=== PATIENT | female | born 1965 | race Caucasian/White ===

== ENCOUNTER 2024-08-13 09:18 | Emergency (ER) | payer BC, SELFPAY ==
[2024-08-13 09:24] VITALS: BP 113/86
[2024-08-13 09:34] VITALS: BMI 30.5
[2024-08-13 09:37] VITALS: BP 137/85
[2024-08-13] MEDS: ADENOCARD 6 MG IV (09:49)
--- NOTE | 2024-08-13 09:49 | ED.GENMED ---
History of Present Illness
<Aristeo Hammond PA-C - Last Filed: 08/13/24 11:53>
General
Chief Complaint: Heart Rate Problem
Source: patient and physician
Time Seen by Provider: 08/13/24 09:37
History of Present Illness
History of Present Illness:
59-year-old female with no significant past medical history at her primary notifying them that she woke up experiencing palpitations with an elevated heart rate. Patient started to feel as if she had an presenting to the emergency department at
request of primary care provider after she had a mild cold and took a dose of NyQuil last night and awoke around 5:15 AM this morning experiencing the palpitations she endorses some mild chest discomfort associated with the elevated heart rate but
otherwise denies any shortness of breath, exertional dyspnea, orthopnea, cough, fevers or any other concerns. Denies any history of similar. No EtOH use.
Past History
<Aristeo Hammond PA-C - Last Filed: 08/13/24 11:53>
Past History
ED Past Medical History: None
ED Past Surgical History: Gynecological
Social History
Tobacco: Non-smoker
Alcohol: None
Drug: None
Personal:
Living: with family
Review of Systems
<Aristeo Hammond PA-C - Last Filed: 08/13/24 11:53>
Review of Systems
All Other Systems: ROS reviewed and negative except as documented in HPI and ROS
Phy Exam
<Aristeo Hammond PA-C - Last Filed: 08/13/24 11:53>
Physical Exam
Physical Exam:
GENERAL: Alert , in no apparent distress
EYE: conjunctiva clear
NECK: Supple, no significant adenopathy.
ENT: o/p clr, mmm.
CARDIAC: Tachycardic rate and rhythrm, rate up to as high as 181bpm
LUNGS: Clear breath sounds bilaterally, no acute respiratory distress, no wheezes/rales/rhonchi
NEUROLOGICAL: Alert and oriented
SKIN: Warm and dry, skin intact.
MUSCULOSKELETAL: well perfused.
PSYCH: Normal and appropriate interaction.
Scores
<Aristeo Hammond PA-C - Last Filed: 08/13/24 11:53>
Heart Failure Risk
Heart Failure Risk Score: Not Applicable
Heart Score for Chest Pain Patients
STEMI patient?: Not applicable
Withdrawal Assessment of Alcohol
Withdrawal Assessment Completed?: Not applicable
Course
<Aristeo Hammond PA-C - Last Filed: 08/13/24 11:53>
Orders/Labs/Results
Orders:
Orders
08/13/24 09:19
Electrocardiogram (*1) Urgent
Reason for Study: Chest Pain
EKG- Treatment ONCE
08/13/24 09:43
Adenosine [Adenocard] 18 mg .ROUTE .[facility]-MED ONE
08/13/24 09:47
EKG [Electrocardiogram (*1)] Urgent
Reason for Study: Tachycardia
EKG- Treatment ONCE
08/13/24 09:48
Adenosine [Adenocard] 6 mg IV NOW STA
08/13/24 09:50
Complete Blood Count/With Diff Urgent
TSH Urgent
Comment: ADD ON
08/13/24 09:51
Basic Metabolic Panel Urgent
08/13/24 10:59
Add On- LAB Stat
Tests Added?: TSH
Abnormal Lab Results
08/13/24 08/13/24
09:50 09:51
Absolute Neuts (auto) 6.6 H 10^3/uL
(1.4-6.5)
Absolute Monos (auto) 1.7 H 10^3/uL
(0.1-0.6)
Lymphocytes % 18.9 L %
(20.5-51.1)
Monocytes % 16.0 H %
(1.7-9.3)
Glucose 141 H mg/dl
(70-99)
08/13/24 09:50
08/13/24 09:51
Vital Signs
Initial and Last Documented VS:
Initial Vital Signs
Temp Pulse Resp BP Pulse Ox
98.7 F 172 18 113/86 99
08/13/24 09:24 24 09:24 08/13/24 09:24 08/13/24 09:24 08/13/24 09:24
Last Documented Vital Signs
Temp Pulse Resp BP Pulse Ox
98.7 F 85 15 137/85 99
08/13/24 09:24 08/13/24 10:00 08/13/24 09:37 08/13/24 09:37 08/13/24 11:00
<Darwin Morocho, DO - Last Filed: 08/13/24 10:13>
Orders/Labs/Results
Orders:
Orders
08/13/24 09:19
Electrocardiogram (*1) Urgent
Reason for Study: Chest Pain
EKG- Treatment ONCE
08/13/24 09:43
Adenosine [Adenocard] 18 mg .ROUTE .[facility]-MED ONE
08/13/24 09:47
EKG [Electrocardiogram (*1)] Urgent
Reason for Study: Tachycardia
EKG- Treatment ONCE
08/13/24 09:48
Adenosine [Adenocard] 6 mg IV NOW STA
08/13/24 09:50
Complete Blood Count/With Diff Urgent
TSH Urgent
Comment: ADD ON
08/13/24 09:51
Basic Metabolic Panel Urgent
08/13/24 10:59
Add On- LAB Stat
Tests Added?: TSH
Abnormal Lab Results
24 08/13/24
09:50 09:51
Absolute Neuts (auto) 6.6 H 10^3/uL
(1.4-6.5)
Absolute Monos (auto) 1.7 H 10^3/uL
(0.1-0.6)
Lymphocytes % 18.9 L %
(20.5-51.1)
Monocytes % 16.0 H %
(1.7-9.3)
Glucose 141 H mg/dl
(70-99)
08/13/24 09:50
08/13/24 09:51
Vital Signs
Initial and Last Documented VS:
Initial Vital Signs
Temp Pulse Resp BP Pulse Ox
98.7 F 172 18 113/86 99
08/13/24 09:24 08/13/24 09:24 08/13/24 09:24 08/13/24 09:24 08/13/24 09:24
Last Documented Vital Signs
Temp Pulse Resp BP Pulse Ox
98.7 F 85 15 137/85 99
08/13/24 09:24 08/13/24 10:00 08/13/24 09:37 08/13/24 09:37 08/13/24 11:00
<Aristeo Hammond PA-C - Last Filed: 08/13/24 11:53>
MDM/Problems Addressed
Differential Diagnosis Includes:
SVT, afib, thyroid disorder, electrolyte abnormality, medication side effects
MDM/Problems Addressed:
59-year-old female presenting to the emergency department for evaluation of elevated heart rate since 5:15 AM this morning. Started with mild cold-like symptoms yesterday and took a dose of NyQuil last night around 10 PM. patient had EKG done in
triage which showed supraventricular tachycardia at a rate of about 175 bpm. We attempted vagal maneuvers which were unsuccessful. Patient converted back to a normal sinus rhythm following 6 mg of adenosine. Symptoms improved. Continuing to
monitor the patient with anticipated discharge home and outpatient follow-up as needed.
<Aristeo Hammond PA-C - Last Filed: 08/13/24 11:53>
*Pulse Oximetry
Patient hypoxic: no
*EKG
Interpreted by ED Provider?: Yes
Heart Rate: 172
Rate: tachycardiac
Rhythm: SVT
*Product Marketing Specialist Interpretation
Rate: tachycardiac
Rhythm: SVT
*Critical Care Note
Total Time (30-74mins, 75-104mins- exclusive of procedures): 30
comment:
Critical care statement: A total of 30 minutes of critical care time was provided for this patient. This includes management of unstable vital signs, evaluation of the patient at bedside, reviewing the patient's pertinent medical records, discussion
with consultants, review of old EKGs and review of pertinent medical records. This time with separate from time utilized to perform the aforementioned documented procedures
<Aristeo Hammond PA-C - Last Filed: 08/13/24 11:53>
Comment
Comment:
Repeat EKG following adenosine shows NSR at 96bpm with no ischemic changes, labs including TSH sent
Patient Management
Discussion with other providers: PCP
Escalation/DeEscalation of care consider admission/obs:
On reevaluation patient continues to be in a normal sinus rhythm at a rate around 75 to 80 bpm. She remains asymptomatic. Labs reassuring. I notified patient's primary care provider who sent her to the ER today about patient's work and treatment.
Patient will follow-up with primary care provider as needed and is aware of return precautions to the ER.
ED Attending Note
<Aristeo Hammond PA-C - Last Filed: 08/13/24 11:53>
-
Portions of this chart may have been created with voice recognition software.� Occasional wrong word or��sound alike� substitutions may have occurred due to the inherent limitations of voice recognition software.
<DO Verna Strong Last Filed: 08/13/24 10:13>
ED Attending Note
Patient seen and examined by attending physician: Yes
I performed the substantive portion of visit, reviewed & personally made and approve the management plan that is documented in note by myself or [place].: Yes
ED Attending Note:
I have seen and evaluated the patient with a [id number] encounter. I have spoken to the advance practicer provider and involved in the medical history, the physical exam, medical decision making.
Evaluation and management service: agree unless noted differently below.
Results interpretation: agree unless noted differently below.
Focused HPI: 59-year-old female presenting with palpitations. Patient brought back immediately with concerns for SVT. Patient has not been feeling well and she [id number] cough and congestion medicine.
Physical exam: Anxious, tachycardic
Medical Decision Making: SVT broke with adenosine and all symptoms resolving.
Discharge Plan
Departure
Patient Disposition: Home (Routine Discharge)
Date of Disposition: 08/13/24
Time of Disposition: 11:00
Patient with high blood pressure during this ER visit?: No
Discharge Problem:
Supraventricular tachycardia
Instructions: Supraventricular tachycardia (SVT)
Referrals:
Jazz Cruz CRNP [Family Provider] -
Interventions
Interventions:
*Risk Screen - Suicide Last Done: 08/13/24 09:24
*General Assessment Last Done: 08/13/24 09:24
*Neglect/Abuse Screening Last Done: 08/13/24 09:24
*ED COVID-19 Vaccine History Last Done: 08/13/24 09:24
*Nursing Disposition Last Done: 08/13/24 11:20
ED- Cardiac Assessment Last Done: 08/13/24 09:37
ED- Pulmonary Assessment Last Done: 08/13/24 11:00
Discharge Date and Time
Discharge Date/Time: 08/13/24 11:20
Print Language: BENGALI
[2024-08-13 10:04] LABS: % Basophils 0.3 % (0-2); % Immature Granulocytes 0.2 % (0-0.5); % Lymphocytes 18.9 % (20.5-51.1); % Neutrophils 62.6 % (42.2-75.2); Absolute Eosinophils 0.2 10^3/uL (0-0.7); Absolute Monocytes 1.7 10^3/uL (0.1-0.6); Absolute Neutrophils 6.6 10^3/uL (1.4-6.5); Hemoglobin 14.9 g/dL (12.0-16.0); Mean Corp Hgb Conc. 33.9 g/dL (33.0-37.0); Mean Corpuscular Volume 88.5 fL (81.0-99.0); Mean Platelet Volume 8.7 fL (7.4-10.4); Nucleated Red Blood Cells % 0 %; Platelet Count 273 10^3/uL (130-400); Red Blood Cell Count 4.97 10^6/uL (4.20-5.40); Red Cell Dist. Width 12.3 % (11.5-14.5); White Blood Cell Count 10.5 10^3/uL (4.8-10.8)
[2024-08-13 10:10] LABS: Blood Urea Nitrogen 17 mg/dl (7-17); Calcium 9.5 mg/dl (8.4-10.2); Carbon Dioxide 24 mmol/L (22-30); Chloride 107 mmol/L (98-107); Estimated Creatinine Clearance 77 ml/min; Glucose 141 mg/dl (70-99); Potassium 3.9 mmol/L (3.5-5.1); Sodium 141 mmol/L (135-145); eGFR > 60.00
[2024-08-13 14:10] LABS: TSH 1.75 uIU/ml (0.47-4.68)
== END 2024-08-13 11:20 | disposition home or self-care (01) ==
LOC: EMR 09:18
PROVIDERS: Physician Assistant Medical; EMERGENCY PHYSICIAN Student in an Organized Health Care Education/Training Program; FAMILY PHYSICIAN Nurse Practitioner Family
DX: I47.10 Supraventricular tachycardia, unspecified (principal)
CPT/HCPCS: 99283; 80048; 84443; 85025; 93005; J0153

== ENCOUNTER → 2024-08-18 13:13 | Outpatient (REF) | payer BC, SELFPAY | LOC: WDC 13:13 | PROVIDERS: ATTENDING PHYSICIAN Obstetrics & Gynecology; FAMILY PHYSICIAN Nurse Practitioner Family | DX: Z12.31 Encounter for screening mammogram for malignant neoplasm of breast (principal) | CPT/HCPCS: 77063; 77067 ==

== ENCOUNTER 2024-09-14 09:59 | Emergency (ER) | payer BC, SELFPAY ==
[2024-09-14 10:17] VITALS: BP 165/75
[2024-09-14 10:24] VITALS: BP 129/87
[2024-09-14] MEDS: ADENOCARD 6 MG IV (10:30)
[2024-09-14 10:33] VITALS: BP 153/93
--- NOTE | 2024-09-14 10:39 | ED.GENMED ---
History of Present Illness
<Aristeo Hammond PA-C - Last Filed: 09/14/24 13:09>
General
Chief Complaint: Heart Rate Problem
Source: patient
Time Seen by Provider: 09/14/24 10:23
History of Present Illness
History of Present Illness:
59-year-old female with no significant past medical history presents back to the emergency department for evaluation after she felt a sudden onset of palpitations around 9:30 AM this morning, sitting at her desk at the time, feels exactly similar to
when she had an episode of ventricular tachycardia a little over 1 month ago. Patient required emergency department care here and received adenosine with resolution of her SVT. Patient states she tried vagal maneuvers with no relief. She notes
that she did remove caffeine from her diet. She was going to call cardiology today to schedule her follow-up visit. Denies any fevers or recent illnesses. Presently only notes the palpitations/elevated heart rate as her only symptom.
Past History
<Aristeo Hammond PA-C - Last Filed: 09/14/24 13:09>
Past History
ED Past Medical History: None
ED Past Surgical History: Gynecological
Social History
Tobacco: Non-smoker
Alcohol: None
Drug: None
Personal:
Living: with family
Review of Systems
<Aristeo Hammond PA-C - Last Filed: 09/14/24 13:09>
Review of Systems
All Other Systems: ROS reviewed and negative except as documented in HPI and ROS
Phy Exam
<Aristeo Hammond PA-C - Last Filed: 09/14/24 13:09>
Physical Exam
Physical Exam:
GENERAL: Alert , in no apparent distress
EYE: conjunctiva clear
NECK: Supple, no significant adenopathy.
ENT: o/p clr, mmm.
CARDIAC: Significantly tachycardic rate, normal rhythm
LUNGS: Clear breath sounds bilaterally, no acute respiratory distress, no wheezes/rales/rhonchi
NEUROLOGICAL: Alert and oriented
SKIN: Warm and dry, skin intact.
MUSCULOSKELETAL: well perfused.
PSYCH: Normal and appropriate interaction.
Scores
<Aristeo Hammond PA-C - Last Filed: 09/14/24 13:09>
Heart Failure Risk
Heart Failure Risk Score: Not Applicable
Heart Score for Chest Pain Patients
STEMI patient?: Not applicable
Withdrawal Assessment of Alcohol
Withdrawal Assessment Completed?: Not applicable
Course
<Aristeo Hammond PA-C - Last Filed: 09/14/24 13:09>
Orders/Labs/Results
Orders:
Orders
09/14/24 10:00
ECG [Electrocardiogram (*1)] Urgent
Reason for Study: Tachycardia
Other Reason for Exam: h/o SVT
EKG- Treatment ONCE
09/14/24 10:26
Adenosine [Adenocard] 18 mg .ROUTE .STK-MED ONE
09/14/24 10:30
Adenosine [Adenocard] 6 mg IV NOW STA
09/14/24 10:32
EKG- Treatment ONCE
Vital Signs
Initial and Last Documented VS:
Initial Vital Signs
Temp Pulse Resp BP Pulse Ox
97.8 F 180 18 165/75 99
09/14/24 10:17 09/14/24 10:17 09/14/24 10:17 09/14/24 10:17 09/14/24 10:17
Last Documented Vital Signs
Temp Pulse Resp BP Pulse Ox
97.8 F 91 14 153/93 100
09/14/24 10:17 09/14/24 10:45 09/14/24 10:45 09/14/24 10:33 09/14/24 11:04
<Toni Fuentes DO - Last Filed: 09/16/24 13:16>
Orders/Labs/Results
Orders:
Orders
09/14/24 10:00
ECG [Electrocardiogram (*1)] Urgent
Reason for Study: Tachycardia
Other Reason for Exam: h/o SVT
EKG- Treatment ONCE
09/14/24 10:26
Adenosine [Adenocard] 18 mg .ROUTE .STK-MED ONE
09/14/24 10:30
Adenosine [Adenocard] 6 mg IV NOW STA
09/14/24 10:32
EKG- Treatment ONCE
Vital Signs
Initial and Last Documented VS:
Initial Vital Signs
Temp Pulse Resp BP Pulse Ox
97.8 F 180 18 165/75 99
09/14/24 10:17 09/14/24 10:17 09/14/24 10:17 09/14/24 10:17 09/14/24 10:17
Last Documented Vital Signs
Temp Pulse Resp BP Pulse Ox
97.8 F 91 14 153/93 100
09/14/24 10:17 09/14/24 10:45 09/14/24 10:45 09/14/24 10:33 09/14/24 11:04
<Aristeo Hammond PA-C - Last Filed: 09/14/24 13:09>
MDM/Problems Addressed
Differential Diagnosis Includes:
Supraventricular tachycardia, atrial fibrillation, atrial flutter, valvular dysfunction
MDM/Problems Addressed:
59-year-old female presenting to the emergency department for evaluation of palpitations that began approximately 1 hour prior to arrival. Patient attempted vagal maneuvers at home with no relief. EKG done in triage here shows supraventricular
tachycardia at a rate around the 180 bpm. Records reviewed which showed patient did not have improvement with vagal maneuvers last time and required 6 mg adenosine IV. Given patient attempted vagal maneuvers we went directly to adenosine.
Following the 6 mg of adenosine patient back into a normal sinus rhythm that is rate controlled. Given the second visit within a month will notify cardiology to help expedite outpatient follow-up.
Chronic conditions affecting care: Arrhythmia
Acute Exacerbation and/or Progression of Chronic Illness: Arrhythmia
<Aristeo Hammond PA-C - Last Filed: 09/14/24 13:09>
*Pulse Oximetry
Patient hypoxic: no
*EKG
Heart Rate: 180
Rate: tachycardiac
Rhythm: SVT
[place]: normal axis
Ischemia: no ischemia
*Elementary Reading Tutor Interpretation
Rate: tachycardiac
Rhythm: SVT
*Critical Care Note
Total Time (30-74mins, 75-104mins- exclusive of procedures): 30
comment:
Critical care statement: A total of 30 minutes of critical care time was provided for this patient. This includes management of unstable vital signs, evaluation of the patient at bedside, reviewing the patient's pertinent medical records, discussion
with consultants, review of old EKGs and review of pertinent medical records. This time with separate from time utilized to perform the aforementioned documented procedures
Data Reviewed
Review of Other/Old Records Reveals: Labs and Records
<Aristeo Hammond PA-C - Last Filed: 09/14/24 13:09>
Patient Management
Discussion with other providers: Television Anchor
Escalation/DeEscalation of care consider admission/obs:
Cardiology team notified and will help expedite outpatient follow-up. Will initiate patient on 25 mg Toprol-XL daily in the meantime. Remained stable in the ER. Stable for discharge home.
Prior to discharge patient received call from cardiology office and has appointment tomorrow afternoon in office
ED Attending Note
<Aristeo Hammond PA-C - Last Filed: 09/14/24 13:09>
-
Portions of this chart may have been created with voice recognition software.� Occasional wrong word or��sound alike� substitutions may have occurred due to the inherent limitations of voice recognition software.
<Toni Fuentes, DO - Last Filed: 09/16/24 13:16>
ED Attending Note
I performed the substantive portion of visit, reviewed & personally made and approve the management plan that is documented in note by myself or [place].: Yes
Discharge Plan
Departure
Patient Disposition: Home (Routine Discharge)
Date of Disposition: 09/14/24
Time of Disposition: 11:13
Patient with high blood pressure during this ER visit?: Yes
Discharge Problem:
Supraventricular tachycardia
Instructions: Supraventricular tachycardia (SVT), Chest Pain DCA Follow Up
Prescriptions:
New
metoprolol succinate [Toprol XL] 25 mg tablet extended release 24 hr
25 mg PO DAILY Qty: 30 0RF
Interventions
Interventions:
*Risk Screen - Suicide Last Done: 09/14/24 10:17
*General Assessment Last Done: 09/14/24 10:27
*Neglect/Abuse Screening Last Done: 09/14/24 10:17
ED- Fall Risk Assessment Last Done: 09/14/24 10:27
*ED COVID-19 Vaccine History Last Done: 09/14/24 10:27
*Nursing Disposition Last Done: 09/14/24 11:20
ED- Cardiac Assessment Last Done: 09/14/24 10:27
ED- Pulmonary Assessment Last Done: 09/14/24 10:27
Discharge Date and Time
Discharge Date/Time: 09/14/24 11:20
Print Language: MONGOLIAN
== END 2024-09-14 11:20 | disposition home or self-care (01) ==
LOC: EMR 09:59
PROVIDERS: EMERGENCY PHYSICIAN Emergency Medicine; FAMILY PHYSICIAN Nurse Practitioner Family
DX: I47.10 Supraventricular tachycardia, unspecified (principal); R03.0 Elevated blood-pressure reading, without diagnosis of hypertension
CPT/HCPCS: 99291; 96374; 93005; J0153

== ENCOUNTER → 2024-10-14 09:04 | Outpatient (REF) | payer BC, SELFPAY | LOC: RCS 09:04 | PROVIDERS: ATTENDING PHYSICIAN Internal Medicine Cardiovascular Disease; FAMILY PHYSICIAN Nurse Practitioner Family | DX: R00.2 Palpitations (principal) | CPT/HCPCS: 93306 ==

== ENCOUNTER 2024-10-25 14:21 | Emergency (ER) | payer BC, SELFPAY ==
[2024-10-25 14:33] VITALS: BP 121/84
[2024-10-25 14:39] VITALS: BP 121/100
[2024-10-25 14:43] VITALS: BP 140/86
[2024-10-25] MEDS: ADENOCARD 6 MG IV (14:43)
--- NOTE | 2024-10-25 14:48 | ED.GENMED ---
History of Present Illness
General
Chief Complaint: Heart Rate Problem
Source: patient
Exam Limitations: none
Time Seen by Provider: 10/25/24 14:34
History of Present Illness
History of Present Illness:
59-year-old female SVT. History of recurrent SVT. Started this morning. Feels lightheaded and weak with it. No chest pain shortness of breath or syncope. Has been treated with adenosine x 2 in the past. Scheduled for ablation this Saturday.
Stopped her metoprolol yesterday. This was for the procedure. She did take 2 doses today in hopes of resolving the SVT
Past History
Past History
ED Past Medical History: Other (SVT)
ED Past Surgical History: Gynecological
Social History
Tobacco: Non-smoker
Alcohol: None
Drug: None
Personal:
Living: with family
Review of Systems
Review of Systems
All Other Systems: Not applicable
Constitutional: Denies fever
Cardiac: Denies chest pain or syncope
Phy Exam
Physical Exam
Physical Exam:
GENERAL: Alert and oriented in no apparent distress
EYE: Orbits normal.
CARDIAC: Tachycardic and regular no murmur
LUNGS: Clear breath sounds,normal
ABDOMEN: Soft, without focal tenderness or distention
NEUROLOGICAL: Alert and oriented , grossly non-focal
SKIN: Warm and dry, no rash or lesion, no discoloration, skin intact.
MUSCULOSKELETAL: No edema,no deformity.Good color
PSYCH: Normal and appropriate interaction.
Course
Orders/Labs/Results
Orders:
Orders
10/25/24 14:22
EKG [Electrocardiogram (*1)] Urgent
Reason for Study: Chest Pain
EKG- Treatment ONCE
10/25/24 14:36
Adenosine [Adenocard] 18 mg .ROUTE .[facility]-MED ONE
10/25/24 14:43
Adenosine [Adenocard] 6 mg IV NOW STA
10/25/24 14:48
Electrocardiogram (*1) Stat
Reason for Study: Other
Other Reason for Exam: chest pain
Cardiac Monitoring- Treatment ONCE
EKG- Treatment ONCE
IV Insert/Care/Rem.- Treatment PRN
10/25/24 14:50
Basic Metabolic Panel Urgent
Complete Blood Count/With Diff Urgent
Abnormal Lab Results
10/25/24
14:50
WBC 12.5 H 10^3/uL
(4.8-10.8)
Plt Count 404 H 10^3/uL
(130-400)
Absolute Neuts (auto) 8.2 H 10^3/uL
(1.4-6.5)
Absolute Monos (auto) 1.2 H 10^3/uL
(0.1-0.6)
Monocytes % 9.7 H %
(1.7-9.3)
Glucose 134 H mg/dl
(70-99)
10/25/24 14:50
10/25/24 14:50
Vital Signs
Initial and Last Documented VS:
Initial Vital Signs
Pulse Resp
173 19
10/25/24 14:31 10/25/24 14:31
Last Documented Vital Signs
Temp Pulse Resp BP Pulse Ox
98.8 F 74 13 124/61 96
10/25/24 14:33 10/25/24 16:00 10/25/24 16:00 10/25/24 16:00 10/25/24 16:00
*Pulse Oximetry
Patient hypoxic: no
*EKG
Interpreted by ED Provider?: Yes
Interpretation: abnormal
Comparison EKG: changes noted
Heart Rate: 166
Rate: tachycardiac
Rhythm: sinus and SVT
[place]: normal axis
Interval: normal interval
QRS Pattern: normal QRS
Ischemia: non-specific ST changes
*Machine Wiper Interpretation
Rate: tachycardiac
Interpretation: abnormal
Heart Rate: 162
Rhythm: SVT
*Critical Care Note
Total Time (30-74mins, 75-104mins- exclusive of procedures): 10
Data Reviewed
Review of Other/Old Records Reveals: Labs and Records
Update Note
Update Note:
Patient converted with 6 mg of adenosine. Normal sinus rhythm. Cardiology contacted. Will observe for an hour or so.
1615.... Patient stable and nontoxic. No arrhythmias. Discharged to follow-up
ED Attending Note
-
Portions of this chart may have been created with voice recognition software.� Occasional wrong word or��sound alike� substitutions may have occurred due to the inherent limitations of voice recognition software.
Discharge Plan
Departure
Patient Disposition: Home (Routine Discharge)
Date of Disposition: 10/25/24
Time of Disposition: 16:21
Patient with high blood pressure during this ER visit?: Yes
Discharge Problem:
Paroxysmal SVT
Instructions: Supraventricular tachycardia (SVT), BLOOD PRESSURE
Prescriptions:
No Action
metoprolol succinate [Toprol XL] 25 mg tablet extended release 24 hr
25 mg PO DAILY Qty: 30 0RF
Cholest Off Plus 450 mg Capsule
800 mg PO DAILY
Probiotic 100 billion cell Capsule
1 cap PO DAILY
turmeric root extract 500 mg Tablet
500 mg PO DAILY
Referrals:
Jazz Cruz CRNP [Family Provider] -
Activity Restrictions/Additional Instructions:
Follow-up per cardiology
Interventions
Interventions:
*Risk Screen - Suicide Last Done: 10/25/24 14:27
*General Assessment Last Done: 10/25/24 14:27
*Neglect/Abuse Screening Last Done: 10/25/24 14:49
ED- Fall Risk Assessment Last Done: 10/25/24 14:40
*ED COVID-19 Vaccine History Last Done: 10/25/24 14:44
*Nursing Disposition Last Done: 10/25/24 16:31
ED- Cardiac Assessment Last Done: 10/25/24 14:40
ED- Pulmonary Assessment Last Done: 10/25/24 14:40
Discharge Date and Time
Discharge Date/Time: 10/25/24 16:32
Print Language: JAPANESE
[2024-10-25 15:00] VITALS: BP 116/61
[2024-10-25 15:20] LABS: % Basophils 0.3 % (0-2); % Eosinophils 1.8 % (0-6); % Immature Granulocytes 0.3 % (0-0.5); % Lymphocytes 22.2 % (20.5-51.1); % Monocytes 9.7 % (1.7-9.3); % Neutrophils 65.7 % (42.2-75.2); Absolute Eosinophils 0.2 10^3/uL (0-0.7); Absolute Lymphocytes 2.8 10^3/uL (1.2-3.4); Absolute Monocytes 1.2 10^3/uL (0.1-0.6); Absolute Neutrophils 8.2 10^3/uL (1.4-6.5); Hematocrit 43.5 % (37.0-47.0); Hemoglobin 14.5 g/dL (12.0-16.0); Mean Corp Hgb Conc. 33.3 g/dL (33.0-37.0); Mean Corpuscular Hgb 29.5 pg (27.0-31.0); Mean Corpuscular Volume 88.4 fL (81.0-99.0); Nucleated Red Blood Cells % 0 %; Platelet Count 404 10^3/uL (130-400); Red Blood Cell Count 4.92 10^6/uL (4.20-5.40); Red Cell Dist. Width 12.4 % (11.5-14.5); White Blood Cell Count 12.5 10^3/uL (4.8-10.8)
[2024-10-25 15:30] LABS: Blood Urea Nitrogen 15 mg/dl (7-17); Carbon Dioxide 27 mmol/L (22-30); Chloride 107 mmol/L (98-107); Glucose 134 mg/dl (70-99); Potassium 4.1 mmol/L (3.5-5.1); Sodium 144 mmol/L (135-145); eGFR > 60.00
[2024-10-25 16:00] VITALS: BP 124/61
== END 2024-10-25 16:32 | disposition home or self-care (01) ==
LOC: EMR 14:21
PROVIDERS: EMERGENCY PHYSICIAN Emergency Medicine; FAMILY PHYSICIAN Nurse Practitioner Family
DX: I47.19 Other supraventricular tachycardia (principal); R42 Dizziness and giddiness; R53.1 Weakness
CPT/HCPCS: 99285; 96374; 80048; 85025; 93005; J0153

== ENCOUNTER 2024-10-30 05:59 | Day surgery (SDC) | payer BC, SELFPAY ==
[2024-10-19 11:04] LABS: % Basophils 0.2 % (0-2); % Immature Granulocytes 0.7 % (0-0.5); % Lymphocytes 26.7 % (20.5-51.1); % Monocytes 12.8 % (1.7-9.3); % Neutrophils 55.6 % (42.2-75.2); Absolute Eosinophils 0.4 10^3/uL (0-0.7); Absolute Immature Granulocytes 0.1 10^3/uL (0-0.05); Absolute Lymphocytes 2.5 10^3/uL (1.2-3.4); Absolute Monocytes 1.2 10^3/uL (0.1-0.6); Absolute Neutrophils 5.2 10^3/uL (1.4-6.5); Hematocrit 38.4 % (37.0-47.0); Hemoglobin 13.2 g/dL (12.0-16.0); Mean Corp Hgb Conc. 34.4 g/dL (33.0-37.0); Mean Corpuscular Hgb 29.5 pg (27.0-31.0); Mean Corpuscular Volume 85.9 fL (81.0-99.0); Mean Platelet Volume 8.5 fL (7.4-10.4); Nucleated Red Blood Cells % 0 %; Platelet Count 376 10^3/uL (130-400); Red Blood Cell Count 4.47 10^6/uL (4.20-5.40); Red Cell Dist. Width 11.8 % (11.5-14.5); White Blood Cell Count 9.4 10^3/uL (4.8-10.8)
[2024-10-19 11:40] LABS: ALT (SGPT) 32 U/L (0-35); AST (SGOT) 25 U/L (14-36); Albumin 4.5 g/dl (3.5-5.0); Alkaline Phosphatase 66 U/L (38-126); Blood Urea Nitrogen 18 mg/dl (7-17); Calcium 9.5 mg/dl (8.4-10.2); Carbon Dioxide 31 mmol/L (22-30); Chloride 102 mmol/L (98-107); Glucose 92 mg/dl (70-99); Magnesium 2.3 mg/dl (1.6-2.3); Potassium 4.3 mmol/L (3.5-5.1); Sodium 141 mmol/L (135-145); Total Bilirubin 0.8 mg/dl (0.2-1.3); Total Protein 7.3 g/dl (6.3-8.2); eGFR > 60.00
[2024-10-19 13:25] VITALS: BMI 28.6
[2024-10-30] VITALS (11 sets, daily range): BP systolic 130–175; BP diastolic 66–89; BMI 28.5
[2024-10-30] MEDS: NSS 500 IV (06:51)
[2024-10-30] MEDS: TYLENOL 1000 MG PO (07:01)
[2024-10-30 09:09] LABS: ACT-LR - POC 274 Seconds (116-155)
[2024-10-30 09:20] LABS: ACT-LR - POC 268 Seconds (116-155)
[2024-10-30 10:27] LABS: ACT-LR - POC 244 Seconds (116-155)
[2024-10-30 11:18] LABS: ACT-LR - POC 218 Seconds (116-155)
--- NOTE | 2024-10-30 16:03 | W.PN.UPDATE ---
Update Note
Progress Note Update
Pt seen post SVT ablation. Bilat groin sites without ht/bleeding, non tender. OOB ambulating. Post EKG NSR 90s, no acute changes. Resume metoprolol as before. Followup at [facility] as scheduled. Home today if groin site/tele remain stable.
--- NOTE | 2024-11-03 17:11 | ITS.CL.ABL ---
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
Ablation
Procedure Report:
THIS NOTE IS CREATED DUE TO ERROR BY The Smartphone Physical. ORIGINAL DOCUMENT CREATED AND PLACED UNDER INCORRECT ENCOUNTER. THIS NOTE IS PLACED UNDER CORRECT ENCOUNTER. ORIGINAL NOTE COPY AND PASTED INTO CORRECT ENCOUNTER PER MARCELLA WALKER.
....
Procedure Report:
Primary Physician: YEIMY Paz
Procedure Date: 10/30/2024
Procedure
Electrophysiology Study with SVT ablation
Left atrial recording / pacing
IV drug for arrhythmia induction
Patient History
Patient is a very pleasant 59-year-old female with past medical history significant for hypertension and paroxysmal symptomatic SVT. Patient had multiple admissions to the emergency department with a short RP tachycardia roughly 160 to 180 bpm
terminated with adenosine. Patient improved symptoms of metoprolol succinate however still recurrence of SVT.
Method
After informed consent was obtained, the patient was brought to the EP lab in a post-absorptive, non-sedated state. A peripheral IV was in place. Continuous electrocardiography, blood pressure and pulse oximetry monitoring was initiated and
cardioversion / defibrillator electrodes were positioned on the chest in an AP orientation. A 'time-out' was called. Conscious sedation was administered with the assistance of the anesthesia services, and local anesthesia was given at the femoral
vein access sites.
Using modified Seldinger technique, ultrasound-guided vascular access was achieved (images saved record) and sheaths were placed. Multipolar catheters were advanced to the coronary sinus, His bundle recording position, right ventricle, and high
right atrium. Following the determination of baseline conduction intervals, comprehensive EP study was performed. Pacing and recording from the RA, RV, HBE, and CS / LA was performed.
For arrhythmia details, see below.
Fluoroscopy time:
6.8 min; 18.66 mGy; DAP 2.59
Total RF time:
13 min 13s
Estimated Blood Loss
10 mL
Complications
None
At the end of the procedure, all catheters and sheaths were removed and hemostasis was assured with figure of 8 suture for both groins. Protamine given. The patient was returned to the recovery area in stable condition.
Access Sites:
Left Femoral Vein: 2 sheaths (7 Fr, 6 Fr)
Right Femoral Vein: 2 sheaths (9 Fr upsized to 11.5 Fr, 6 Fr)
Baseline Intervals:
Rhythm: SR
IL: 85 ms
AH: 54 ms
HV: 60 ms
QRS: 81 ms
QT: 311 ms
QTc: 353 ms
Post-Procedure Intervals:
IL: 131 ms
AH: 60 ms
HV: 46 ms
QRS: 92 ms
QT: 343 ms
QTc: 453 ms
A-A: 580 ms
R-R: 580 ms
AV Conduction:
- AVWB at 380 msec
- VAWB attempted with non-sustained AF
Refractory Periods
- AERP: 600/220 ms
Procedure Synopsis:
The patient entered the room in sinus rhythm. Following access and catheter placement, electrophysiology study was performed. Baseline measurements were taken and recorded. Initial attempt at VA decremental pacing to assess VA Wenckebach cycle
length resulted in paroxysmal nonsustained atrial fibrillation. Initial attempt at AV decremental pacing to assess AV Wenckebach cycle length demonstrated induction of tachycardia. This was a narrow complex, concentrically activated a�on�V
tachycardia. The tachycardia cycle length was 410 ms. With overdrive ventricular pacing, a VAV response was noted. Additionally, the SA�VA time was greater than 85 ms and the PPI minus TCL was greater than 115 ms. Tachycardia was terminated with
overdrive pacing. Para-Hisian pacing demonstrated a glenn response. 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 Decremental conduction with atrial extra stimuli demonstrated induction of tachycardia
without AH jump. Tachycardia cycle length was again similar at 410 ms. Short 9 Tamazight sheath was exchanged for an 11.5 steerable sheath. Heparin was provided. HD grid advanced in the right atrium while patient in sinus rhythm. The slow pathway,
his bundle were mapped in sinus rhythm. HD grid was removed and Tacticath D/F SE irrigated catheter was advanced into the right atrium. Ablation was performed 20-25 W (careful monitoring of impedance and temperature) along the septum at the height
of the floor of the coronary sinus within a: V ratio of 1:3 to 1: 5. Careful monitoring of AV conduction, AH/HV interval, and junctional's were noted. During ablation, patient noted to induce into tachycardia very easily. Cardia subsequently
terminated with overdrive pacing. Repeat ablation in these areas again with careful monitoring ultimately yielded suppression of tachycardia. Patient noted to reinduce into tachycardia with atrial extra stimuli. Tachycardia terminated with
overdrive pacing once more. Ablation continued rising no higher than the coronary sinus. During ablation, slow stable junctional's were also noted. Lastly, during final ablation, single A without V was noted with fast junctional and ablation was
terminated. During entirety of ablation, AH/HV intervals remained unchanged and AV conduction remained consistent. Following waiting period, patient remained noninducible for tachycardia. AERP was noted with single stimuli and AV Wenckebach
decremental pacing noted without induction of tachycardia. Catheters removed and hemostasis achieved as noted above.
Recommendations
- Admit to telemetry
- Bedrest with straight-leg precautions
- Continue home medications as indicated, increase metoprolol 25 mg daily to BID
- Follow-up in office as scheduled
Danny Le DO, FACC
Clinical Cardiac Electrophysiology
cc: YEIMY Paz
== END 2024-10-30 16:01 | disposition home or self-care (01) ==
LOC: CATH 05:59
PROVIDERS: ATTENDING PHYSICIAN Internal Medicine Cardiovascular Disease; FAMILY PHYSICIAN Nurse Practitioner Family
DX: R00.2 Palpitations (principal); I10 Essential (primary) hypertension; E66.9 Obesity, unspecified; Z68.30 Body mass index [BMI] 30.0-30.9, adult; I47.19 Other supraventricular tachycardia
CPT/HCPCS: C1732; C1730; C1894; C1766; C2630; C1892; 36415; 76937; 80053; 83735; 85025; 85347; 86850; 86900; 86901; 93005; 93623; 93653

== ENCOUNTER → 2025-08-20 12:09 | Outpatient (REF) | payer BC, SELFPAY | LOC: WDC 12:09 | PROVIDERS: ATTENDING PHYSICIAN Obstetrics & Gynecology; FAMILY PHYSICIAN Nurse Practitioner Family | DX: Z12.31 Encounter for screening mammogram for malignant neoplasm of breast (principal) | CPT/HCPCS: 77063; 77067 ==